=== PATIENT | male | born 1995 | race Caucasian/White ===

== ENCOUNTER 2021-01-13 12:22 | Emergency (ER) | payer OTHER, SELFPAY ==
[2021-01-13] VITALS (21 sets, daily range): BP systolic 113–130; BP diastolic 79–99; PULSE 72–88; RESP 13–20; O2SAT 96–99
--- NOTE | ~2021-01-13 | CT_ITS ---
EXAMINATION: CT BRAIN W/O DATE: 01/13/2021 13:36 INDICATION: Syncope. Loss of consciousness. TECHNIQUE: Computed tomography (CT) of the head was performed without intravenous contrast. The dose- length product was 605.33 mGy-cm. Automated exposure control and iterative reconstruction technique w ere employed. COMPARISON: No prior studies for comparison. FINDINGS: Normal brain parenchymal volume for age. Normal mcqueen-white differentiation. No acute intrac ranial hemorrhage, infarction, mass or mass effect. No ventriculomegaly or midline shift. Midline sagittal images demonstrate a normal corpus callosum, c raniovertebral junction and sella turcica. Basilar cisterns are patent. Paranasal sinuses and mastoids are pneumatized. No depressed skull fractures. IMPRESSION: 1. No acute intracranial abnormality. Reviewed, dictated and finalized at location B.
--- NOTE | 2021-01-13 13:26 | ECG_ITS ---
Measurements Intervals [place] Rate: 77 P: 42 ND: 156 QRS: 39 QRSD: 103 T: 22 QT: 341 QTc: 386 Interpretive Statements SINUS RHYTHM INCOMPLETE RIGHT BUNDLE BRANCH BLOCK DELAYED PRECORDIAL R/S TRANSITION BASELINE ARTIFACT- I, III, AVR, AVL, AVF, V2 BORDERLINE ECG Electronically Signed On 01-13-2021 14:22:45 CDT by Marco Rider D.O.
[2021-01-13] MEDS: TETANUS,DIPHTHERIA,AC PERTUSSIS ADULT (0.5 ML) BOOSTRIX IM (13:40)
[2021-01-13 13:50] LABS: Basophils Percent Auto 0.7 % (0.2-1.2); Eosinophils Absolute Auto 0.1 K/mm3 (0-0.3); Eosinophils Percent Auto 2.5 % (0-4.4); Hematocrit 44.4 % (42.0-52.0); Hemoglobin 15.2 g/dL (14.0-18.0); Immature Granulocyte Absolute 0.03 K/mm3 (0.00-0.031); Immature Granulocyte Percent A 0.5 % (0-0.5); Lymphocytes Absolute Auto 1.66 K/mm3 (0.9-3.2); Lymphocytes Percent Auto 30.1 % (18.3-44.2); Mean Corpuscular HGB Conc 34.2 g/dl (32-36); Mean Corpuscular Hemoglobin 29.9 pg (26-34); Mean Corpuscular Volume 87.4 fl (80-100); Mean Platelet Volume 10.8 fl (7.4-10.4); Monocytes Absolute Auto 0.4 K/mm3 (0.1-0.6); Monocytes Percent Auto 6.5 % (2.6-8.5); Neutrophils Absolute Auto 3.3 K/mm3 (1.3-6.7); Neutrophils Percent Auto 59.7 % (45.5-73.1); Platelet Count Result 220 k/mm3 (150-375); Red Blood Count 5.08 M/mm3 (4.6-6.20); Red Cell Distribution Width 12.3 % (11.5-14.5); White Blood Count 5.5 K/mm3 (4.5-10.0)
[2021-01-13 13:55] LABS: Ethanol < 10 mg/dL (<10)
[2021-01-13 13:56] LABS: Alanine Aminotransferase 21 U/L (4-50); Albumin Level 4.6 g/dL (3.5-5.1); Alkaline Phosphatase 79 U/L (38-126); Anion Gap 5 mmol/L (8-16); Aspartate Amino Transferase 31 U/L (17-59); Bilirubin,Total 0.8 mg/dL (0.2-1.3); Blood Urea Nitrogen 18 mg/dL (9-20); Calcium 9.7 mg/dL (8.4-10.2); Carbon Dioxide 31 mmol/L (22-30); Chloride 105 mmol/L (98-107); Estimated CRCL calculation 105 ml/min; Estimated Glomerular Filt Rate > 60; Glucose 98 mg/dL (75-110); Potassium 3.7 mmol/L (3.4-5.0); Sodium 141 mmol/L (137-145)
--- NOTE | 2021-01-13 14:00 | ED.SEIZURE ---
HPI - Seizure General Chief Complaint: Seizure Stated Complaint: syncopal episode, head lac Time Seen by Provider: 01/13/21 12:34 Source: patient and family Mode of arrival: EMS Limitations: no limitations History of Present Illness HPI Narrative: 25-year-old male Here for evaluation of likely seizure Reports there was a history of seizures in childhood until approximately age 7 but none for many years He was working at [employer] today and having a snack break when there was a episode of falling onto the ground, altered level of consciousness, generalized shaking, and urinary incontinence which certainly sounds seizure-like As it resolved coworkers tried to stand him up and move him but he was reportedly too weak and shaky to do that and was placed back on the ground until EMS arrived He did not report feeling sick or having any symptoms at all prior to this episode He did strike his forehead and has a small laceration over his right eyebrow and now complains of a headache as well as some soreness in his jaw, but did not bite his tongue and did not loosen any teeth, and does not have any other injuries Related Data Allergies Allergy/AdvReac Type Severity Reaction Status Date / Time No Known Allergies Allergy Unverified 11/14/13 10:37 Review of Systems Review of Systems: All systems reviewed & are unremarkable except as noted in HPI and below Constitutional: Constitutional: Reports no additional constitutional complaints, Denies chills, Denies fever(s) and Denies headache(s) Eyes: Eyes: Reports no additional eye complaints and Denies change in vision ENT: Denies headache(s) and Denies sore throat Comments: No injuries Cardiovascular: Cardiovascular: Denies chest pain and Denies dyspnea Respiratory: Respiratory: Denies cough and Denies dyspnea Gastrointestinal: Gastrointestinal: Denies abdominal pain, Denies nausea and Denies vomiting Genitourinary: Genitourinary: Reports urinary incontinence Musculoskeletal: Musculoskeletal: Reports myalgias, Denies deformity, Denies arthralgias, Denies joint swelling and Denies numbness Integumentary/Breasts: Skin/Breast: Denies wounds Neurologic: Reports confusion, Reports headache(s), Denies focal weakness and Denies numbness Comments: Seizure versus syncope Psychiatric: Psychiatric: Reports no additional psychiatric complaints Endocrine: Endocrine: Reports no additional endocrine complaints Hematologic/Lymphatic: Hematologic/Lymphatic: Reports no additional hematologic/lymphatic complaints Allergic/Immunologic: Allergic/Immunologic: Reports no additional allergic/immunologic complaints [facility] Family History Family History (Updated 05/15/14 @ 07:13 by DOCTOR UNKNOWN) Mother Hypertension Social History Social History Smoking status: Never smoker Second hand tobacco smoke exposure: No Alcohol intake: never Gender identity (if verbalized by the patient): Male Exam Const: General: cooperative, no acute distress and alert Orientation/consciousness: patient oriented x3 (alert) HENMT: Head: normal to inspection, normocephalic, atraumatic, contusion and laceration (2 cm to the lateral part of the right eyebrow) Ears: external ears normal General nose exam: no epistaxis Eyes: Conjunctivae: conjunctivae normal Pupils: Equal, round and reactive pupils present EOM: EOMs intact bilaterally Neck: Neck: normal visual inspection, no meningeal signs, supple and no JVD Other: No tenderness Resp: Effort & Inspection: normal respiratory effort and not labored Auscultation: no rales, no rhonchi, no wheezes and other (BS =) Cardio: Rate: regular rate Rhythm: regular rhythm Heart sounds: no murmurs GI: GI Palp: Yes Soft to palpation and No Tenderness to palpation present (GI) Back/Spine/Pelvis: Other: No back tenderness Skin: General skin exam: normal color and no rashes or lesions noted Neuro: General: patient oriented x3 (alert), moves all extremities,
[2021-01-13 14:37] LABS: Amphetamine Screen Urine Negative (Negative); Barbiturate Screen Urine Negative (Negative); Benzodiazepines Screen Urine Negative (Negative); Cannabinoid Screen Urine Negative (Negative); Cocaine Screen Urine Negative (Negative); Methadone Screen Urine Negative (Negative); Opiate Screen Urine Negative (Negative); Phencyclidine Screen Urine Negative (Negative)
[2021-01-13] MEDS: levETIRAcetam 500 MG TABLET PO (15:43)
== END 2021-01-13 15:50 | disposition home or self-care (01) ==
PROVIDERS: Emergency Provider Emergency Medicine
DX: R56.9 Unspecified convulsions (principal); S01.111A Laceration without foreign body of right eyelid and periocular area, initial encounter; Z23 Encounter for immunization; W18.39XA Other fall on same level, initial encounter
CPT/HCPCS: 12011; 36415; 70450; 80053; 80307; 85025; 90471; 90715; 93005; 99284; A9270

== ENCOUNTER 2021-01-22 06:42 | Outpatient (CLI) | payer OTHER, SELFPAY ==
--- NOTE | 2021-01-23 11:30 | P.NEURO_ITS ---
Neurology EEG Report TEST EEG DIAGNOSIS seizures CONDITION OF RECORDING awake drowsy and sleep CLINICAL HISTORY patient reported he had a seizure last week. He had a seizure when he was younger but has not had for long time and also has not been on any medication for several years EEG DESCRIPTION basic resting occipital frequency consists of large amount of well-organized 11 to 13 hertz per 2nd alpha admixed with minimal amount of low-voltage 15 to 18 hertz per 2nd beta. During drowsiness low-voltage beta activity is seen diffus stuart admixed with waxing and waning posterior alpha rhythm. Bilateral symmetrical sleep activity seen during sleep. Hyperventilation not done. Photic stimulation produced normal drive. Non paroxysmal. Nonfocal. Nonlateralizing. IMPRESSION Normal record
== END 2021-01-22 06:43 | disposition home or self-care (01) ==
PROVIDERS: PCP Family Medicine; Visit Provider Psychiatry & Neurology Neurology
DX: R56.9 Unspecified convulsions (principal)
CPT/HCPCS: 95816

== ENCOUNTER 2022-11-12 19:08 | Emergency (ER) | payer BC, SELFPAY ==
[2022-11-12 19:38] VITALS: BP 132/81; PULSE 78; RESP 16; TEMP 36.6; O2SAT 98
--- NOTE | 2022-11-12 20:08 | ED.GENADULT ---
HPI - General Adult General Chief complaint: Skin/Abscess/Foreign Body Stated complaint: End of Pen to stuck in L ear Time Seen by Provider: 11/12/22 19:57 History of Present Illness HPI narrative: 27-year-old male presenting to the emergency department for evaluation after having the metallic and of a writing pen stuck in his ear. Patient attempted to get it out and ended up using a Q-tip and pushed it in further. Related Data Allergies Allergy/AdvReac Type Severity Reaction Status Date / Time No Known Allergies Allergy Verified 11/12/22 19:09 Review of Systems Review of Systems: Foreign body in left ear All systems reviewed & are unremarkable except as noted in HPI and below PMFSH Family History Family History (Updated 05/15/14 @ 07:13 by DOCTOR UNKNOWN) Mother Hypertension Social History Social History Smoking status: Never smoker Second hand tobacco smoke exposure: No Alcohol intake: never Gender identity (if verbalized by the patient): Male Exam Narrative: APPEARANCE: Well appearing, no pain, no distress, well-nourished. HEAD: normocephalic, atraumatic. EYES: PERRLA/EOMI, conjunctivae clear. NOSE: Normal no drainage EARS: Metallic foreign body in left ear THROAT: Pharynx clear, no exudate. NECK: Supple. No adenopathy, no masses. RESPIRATORY: Airway patent, respirations nonlabored. Clear to auscultation bilaterally, no rales, rhonchi, wheezing. NEURO: Alert. Cranial nerves II through XII intact. Grossly intact SKIN: Warm, dry. Normal Color Course Course Emergency Course: 27-year-old male with a foreign body in his left ear. Alligator forceps were used to remove the foreign body. TM was visualized after the removal of the foreign body and ear was well-appearing. Patient reports all symptoms are resolved after removal of the foreign body Vital Signs Vital signs: Vital Signs Temperature 97.8 F 11/12/22 19:38 Pulse Rate 78 11/12/22 19:38 Respiratory Rate 16 11/12/22 19:38 Blood Pressure 132/81 11/12/22 19:38 Pulse Oximetry 98 11/12/22 19:38 Oxygen Delivery Room Air 11/12/22 19:38 Temperature 98 F 11/12/22 20:18 Pulse Rate 80 11/12/22 20:18 Respiratory Rate 18 11/12/22 20:18 Blood Pressure 128/79 11/12/22 20:18 Pulse Oximetry 99 11/12/22 20:18 Oxygen Delivery Room Air 11/12/22 19:38 Procedures Foreign Body Removal Foreign Body #1: Time Out Performed: yes Site: left and ear Description of foreign body: other (Metallic end of a writing pen) Sedation/Analgesia: none Technique: manual removal and removal with forceps Confirmed by:: direct visualization Complications: none Post-procedure exam: awake, alert Neurovascular: no change from pre-procedure FB Removal Ear Foreign Body #1: Location: ear canal (L) Foreign Body Suspected: other (Metallic foreign body) TM intact pre-procedure: unable to visualize Foreign Body Removed: yes Foreign Body Removal Technique: forceps Tympanic Membrane Intact Post Procedure: Yes Patient Tolerated Procedure: well and no complications Complications: none Medical Decision Making Vital Signs Vital Signs: Vital Signs Temperature 97.8 F 11/12/22 19:38 Pulse Rate 78 11/12/22 19:38 Respiratory Rate 16 11/12/22 19:38 Blood Pressure 132/81 11/12/22 19:38 Pulse Oximetry 98 11/12/22 19:38 Oxygen Delivery Room Air 11/12/22 19:38 Temperature 98 F 11/12/22 20:18 Pulse Rate 80 11/12/22 20:18 Respiratory Rate 18 11/12/22 20:18 Blood Pressure 128/79 11/12/22 20:18 Pulse Oximetry 99 11/12/22 20:18 Oxygen Delivery Room Air 11/12/22 19:38 Discharge Plan Discharge Clinical Impression: Foreign body in ear Qualifiers: Encounter type: initial encounter Laterality: left Qualified Code(s): T16.2XXA - Foreign body in left ear, initial encounter Patient Disposition: H
[2022-11-12 20:18] VITALS: BP 128/79; PULSE 80; RESP 18; TEMP 36.6; O2SAT 99
== END 2022-11-12 20:18 | disposition home or self-care (01) ==
PROVIDERS: Emergency Provider Emergency Medicine; PCP Family Medicine
DX: T16.2XXA Foreign body in left ear, initial encounter (principal)
CPT/HCPCS: 69200; 99282

== ENCOUNTER 2025-03-27 13:34 | Emergency (ER) | payer BC, SELFPAY ==
[2025-03-27 13:46] VITALS: BP 128/89; PULSE 86; RESP 20; TEMP 36.7; O2SAT 20
--- NOTE | 2025-03-27 13:56 | ED.SKABFB ---
HPI - Skin/Abscess/Foreign Bdy General Chief complaint: Extremity Problem,Nontraumatic Stated complaint: Right Hand Middle Finger Pain Time Seen by Provider: 03/27/25 13:53 Source: patient and family Mode of arrival: ambulatory Limitations: no limitations History of Present Illness HPI narrative: 29-year-old male presents with paronychia to right middle finger. Has had redness, swelling and tenderness for the past 2-3 days. His mom attempted to pop last night, was painful. All systems reviewed and negative except as noted above. Related Data Allergies Allergy/AdvReac Type Severity Reaction Status Date / Time No Known Allergies Allergy Verified 03/27/25 13:36 Review of Systems Review of Systems: CONSTITUTIONAL: Denies fever, chills, or sweats. EYES: Denies visual changes, redness, or discharge. ENT: Denies rhinorrhea, congestion, sore throat, or otalgia. CARDIOVASCULAR: Denies chest pain, palpitations, or edema. RESPIRATORY: Denies cough or dyspnea. GASTROINTESTINAL: Denies abdominal pain, nausea, vomiting, or diarrhea. GENITOURINARY: Denies dysuria or hematuria. SKIN: Reports paronychia to right middle finger MUSCULOSKELETAL: Denies back pain, joint pain, or myalgia. NEUROLOGIC: Denies headache, numbness, or weakness. PSYCHIATRIC: Denies anxiety or depression. All other systems reviewed are negative, except as documented in HPI. [facility] Family History Family History (Updated 05/15/14 @ 07:13 by DOCTOR UNKNOWN) Mother Hypertension Social History Social History Smoking status: Never smoker Second hand tobacco smoke exposure: No Alcohol intake: never Gender identity (if verbalized by the patient): Male Comments At time of signature, agree with nursing past medical, surgical, social and family history. There is no relevant family history pertinent to the presenting complaint. Exam Narrative: GENERAL: This is a well-nourished, well-developed patient, in no apparent distress. HEAD: normocephalic, atraumatic. EYES: PERRL. Sclera clear/white. Vision is grossly intact. EARS: External ears normal NOSE: External nose normal NECK: Neck supple, non-tender without lymphadenopathy, masses or thyromegaly. CARDIOVASCULAR: Regular rate and rhythm without murmurs, gallops, or rubs. RESPIRATORY: Clear to auscultation. Breath sounds equal bilaterally. No wheezes, rales, or rhonchi. SKIN: warm, Dry, intact with no suspicious lesions or rash, good texture and turgor. erythema, swelling, tenderness, fluctuance R middle finger, medial aspect NEURO: awake, alert, and oriented to person, place and time. There were no obvious focal neurologic abnormalities. EXTREMITIES: No joint tenderness, effusion, or edema noted. Course Course Level of Care: Express Care Visit Vital Signs Vital signs: Vital Signs Temperature 36.7 C 03/27/25 13:46 Pulse Rate 86 03/27/25 13:46 Respiratory Rate 20 03/27/25 13:46 Blood Pressure 128/89 03/27/25 13:46 Pulse Oximetry 20 L 03/27/25 13:46 Oxygen Delivery Room Air 03/27/25 13:46 Temperature 36.7 C 03/27/25 13:46 Pulse Rate 86 03/27/25 13:46 Respiratory Rate 20 03/27/25 13:46 Blood Pressure 128/89 03/27/25 13:46 Pulse Oximetry 20 L 03/27/25 13:46 Oxygen Delivery Room Air 03/27/25 13:46 reviewed Procedures Abscess I/D hand: Date of Incision: 03/27/25 Time of Incision: 14:00 Side (if applicable): right (middle finger paronychia) Sedation/analgesia: none Local Anesthetic: none Technique: incised with #11 blade Irrigation: No Packing used?: none I&D Results: Pus and Blood MDM - Skin/Abscess/Foreign Bdy MDM Narrative Medical decision making narrative: paronychia to right middle finger open and drained. Wound culture ordered. Will prescribe Augmentin. Patient well-appearing. Differential Diagnosis Differential diagnosis: Likely abscess of skin or subcutaneous tissue, cellulitis and other ( Paronychia) Discharge Plan Discharge Clinical Impression: Paronychia of right middle finger Patient Disposition: Home Condition: Stable Instructions: Antibiotic Form, Paronychia (ED) Additional Instructions: Take antibiotic as prescribed until gone. Take tylenol or ibuprofen every 6 to 8 hours as needed for pain. See your doctor as needed. Patient Language: Sammarinese Prescriptions: New amoxicillin-pot clavulanate 875-125 mg tablet 1 tablet PO Q12H 7 Days Qty: 14 0RF Follow-up/Referrals: Alban De La Rosa MD [Primary Care Provider] - Time of Disposition: 14:04
== END 2025-03-27 14:10 | disposition home or self-care (01) ==
PROVIDERS: Emergency Provider Nurse Practitioner Family; PCP Family Medicine
DX: L03.011 Cellulitis of right finger (principal)
CPT/HCPCS: 10060; 99213; G0463

== ENCOUNTER 2025-09-10 12:08 | Emergency (ER) | payer BC, SELFPAY ==
--- NOTE | ~2025-09-10 | CT_ITS ---
EXAMINATION: CT BRAIN W/O DATE: 09/10/2025 15:46 INDICATION: Head trauma. TECHNIQUE: Computed tomography (CT) of the head was performed without intravenous contrast. The dose-length product was 605.33 mGy-cm. Automated exposure control and iterative reconstruction technique were employed. COMPARISON: CT dated 01/13/2021 FINDINGS: Normal brain parenchymal volume for age. Normal mcqueen-white differentiation. No acute intracranial hemorrhage, infarction, mass or mass effect. No ventriculomegaly or midline shift. Midline sagittal images demonstrate a normal corpus callosum, craniovertebral junction and sella turcica. Basilar cisterns are patent. Paranasal sinuses and mastoids are pneumatized. No depressed skull fractures. IMPRESSION: 1. No acute intracranial abnormality. Reviewed, dictated and finalized at location O. [employer]
--- NOTE | ~2025-09-10 | XR_ITS ---
EXAMINATION: XR chest 2V 09/10/2025 14:00 INDICATION: Syncope PROCEDURE: AP and lateral views of the chest COMPARISON: 01/15/2007 FINDINGS: The lungs are clear. Shallow inspiration. The cardiomediastinal silhouette is within normal limits. There are no pleural effusions. There is no pneumothorax suspected. IMPRESSION: 1: NO ACUTE CARDIOPULMONARY DISEASE. Reviewed, dictated and finalized at location O. TESTER
[2025-09-10 12:27] VITALS: BP 132/83; PULSE 117; RESP 18; TEMP 37.9; O2SAT 96
--- NOTE | 2025-09-10 12:50 | ECG_ITS ---
Test Date: 2025-09-10 12:56:39 Measurements Intervals [place] Rate: 114 P: 46 VT: 144 QRS: 52 QRSD: 102 T: 30 QT: 313 QTc: 431 Interpretive Statements SINUS TACHYCARDIA POSSIBLE LEFT ATRIAL ENLARGEMENT INCOMPLETE RIGHT BUNDLE BRANCH BLOCK DELAYED PRECORDIAL R/S TRANSITION ABNORMAL ECG No previous ECG available for comparison Electronically Signed On 09-10-2025 18:53:41 [employer] by Marco Rider D.O.
[2025-09-10 12:52] VITALS: BP 147/98; PULSE 114; RESP 20; O2SAT 100
--- NOTE | 2025-09-10 12:52 | PC.NURSE ---
Pt had witnessed syncopal episode while in [place]. Pt started to cry out stating its happening, and then jolted and went limp. Mother was sternal rubbing pt, pt was nonresponsive for less than 5 seconds. Blood sugar was obtained, vital were obtained. ED charge was made aware. Pt started to become pale, diaphoretic, and then vomited yellow/green mucus like color and consistency into emesis bag. Pt taken to ED 11.
[2025-09-10 13:14] LABS: Hematocrit 44.0 % (42.0-52.0); Hemoglobin 15.4 g/dL (14.0-18.0); Immature Granulocyte Percent A 0.4 % (0-0.5); Lymphocytes Absolute Auto 0.43 K/mm3 (0.9-3.2); Mean Corpuscular HGB Conc 35.0 g/dl (32-36); Mean Corpuscular Hemoglobin 30.0 pg (26-34); Mean Corpuscular Volume 85.8 fl (80-100); Nucleated Red Blood Cells Absolute Auto 0.000 K/mm3 (0.0-0.012); Nucleated Red Blood Cells Perc 0.0 % (0.0-0.2); Platelet Count Result 173 k/mm3 (150-375); Red Blood Count 5.13 M/mm3 (4.6-6.20); White Blood Count 5.5 K/mm3 (4.5-10.0)
[2025-09-10 13:32] LABS: Alanine Aminotransferase 27 U/L (6-50); Albumin Level 4.6 g/dL (3.5-5.1); Alkaline Phosphatase 94 U/L (38-126); Anion Gap 12 mmol/L (4-12); Aspartate Amino Transferase 31 U/L (17-59); Bilirubin,Total 1.3 mg/dL (0.2-1.3); Blood Urea Nitrogen 11 mg/dL (9-20); Calcium 9.1 mg/dL (8.4-10.2); Carbon Dioxide 23 mmol/L (22-30); Chloride 102 mmol/L (98-107); Estimated CRCL calculation 93 ml/min; Estimated Glomerular Filt Rate > 60; Glucose 132 mg/dL (65-110); Potassium 3.4 mmol/L (3.4-5.0); Sodium 137 mmol/L (137-145); Total Protein 8.0 g/dL (6.3-8.2)
[2025-09-10 13:51] LABS: Influenza A QL RT-PCR Positive (Negative); Influenza B QL RT-PCR Negative (Negative); RSV RNA, RT-PCR Negative (Negative); SARS-CoV-2 RNA PCR Negative (Negative)
--- NOTE | 2025-09-10 15:16 | ED_ITS ---
HPI - General Adult General Chief complaint: Syncope Stated complaint: exposed to flu, syncopal episode at urgent care Time Seen by Provider: 09/10/25 13:28 History of Present Illness HPI narrative: 30-year-old male presented to hold a urgent care for evaluation due to suspected he had influenza and patient had a syncopal episode. Patient's family did test positive for influenza. During the syncopal episode he did strike his face and does have a superficial abrasion to the left side of his nose. Upon arrival emergency department patient is well-appearing. Related Data Allergies Allergy/AdvReac Type Severity Reaction Status Date / Time No Known Allergies Allergy Verified 09/10/25 12:31 Review of Systems 2 Review of Systems: All systems reviewed & are unremarkable except as noted in HPI and below PMFSH Family History Family History (Updated 05/15/14 @ 07:13 by DOCTOR UNKNOWN) Mother Hypertension Social History Social History Smoking status: Never smoker Second hand tobacco smoke exposure: No Alcohol intake: never Gender identity (if verbalized by the patient): Male Exam 2 Narrative: APPEARANCE: Well appearing, no pain, no distress, well-nourished. HEAD: normocephalic, atraumatic. EYES: PERRLA/EOMI, conjunctivae clear. NOSE: Normal no drainage EARS:TMS clear with good light reflex. THROAT: Pharynx clear, no exudate. NECK: Supple. No adenopathy, no masses. RESPIRATORY: Airway patent, respirations nonlabored. Clear to auscultation bilaterally, no rales, rhonchi, wheezing. CARDIOVASCULAR: Regular rate and rhythm without murmurs rubs or gallops. ABDOMINAL: Soft, nontender, nondistended, normal bowel sounds MUSCULOSKELETAL: Moves all extremities. Strength/ROM intact, No edema, No calf tenderness. NEURO: Alert. Cranial nerves II through XII intact. Good gait. Good coordination SKIN: Superficial laceration to left side of nose Course Vital Signs Vital signs: Vital Signs Temperature 100.2 F H 09/10/25 12:27 Pulse Rate 117 H 09/10/25 12:27 Respiratory Rate 18 09/10/25 12:27 Blood Pressure 132/83 09/10/25 12:27 Pulse Oximetry 96 09/10/25 12:27 Oxygen Delivery Room Air 09/10/25 12:27 Temperature 100.3 F H 09/10/25 15:23 Pulse Rate 110 H 09/10/25 18:25 Respiratory Rate 16 09/10/25 18:25 Blood Pressure 136/88 09/10/25 18:25 Pulse Oximetry 98 09/10/25 18:25 Oxygen Delivery Room Air 09/10/25 12:27 [facility] Narrative Medical decision making narrative: 30-year-old male presenting to the emergency department for evaluation after having a syncopal episode. Patient was treated with IV fluids and did feel improved. Patient had negative head CT negative chest x-ray. Patient did test positive for influenza A. Patient was afebrile with no leukocytosis and a Stable hemoglobin of 15.4. Patient was negative for RSV and for COVID. Patient did feel improved with treatment. Patient was able to ambulate in the emergency department and was no longer orthostatic. Patient family updated the results of the workup they are comfortable With the plan for discharge home. Differential Diagnosis Differential Diagnosis: COVID, RSV, influenza, orthostatic hypotension, vasovagal, subdural hematoma, subarachnoid hemorrhage, pneumonia Lab Data [facility] Lab Attestation statement: I personally reviewed the patient's lab results. 09/10/25 13:06 09/10/25 13:06 Labs: Lab Results 09/10/25 09/10/25 Range/Units 12:42 13:06 WBC 5.5 (4.5-10.0) K/mm3 RBC 5.13 (4.6-6.20) M/mm3 Hgb 15.4 (14.0-18.0) g/dL Hct 44.0 (42.0-52.0) % MCV 85.8 (80-100) fl MCH 30.0 (26-34) pg MCHC 35.0 (32-36) g/dl RDW 12.6 (11.5-14.5) % Plt Count 173 (150-375) k/mm3 MPV 10.7 H (7.4-10.4) fl Immature Gran % (Auto) 0.4 (0-0.5) % Neut % (Auto) 77.4 H (45.5-73.1) % Lymph % (Auto) 7.8 L (18.3-44.2) % [place] % (Auto) 14.0 H (2.6-8.5) % Eos % (Auto) 0.0 (0-4.4) % Baso % (Auto) 0.4 (0.2-1.2) % Lymph # (Auto) 0.43 L (0.9-3.2) K/mm3 [place] # (Auto) 0.8 H (0.1-0.6) K/mm3 Eos # (Auto) 0.0 (0-0.3) K/mm3 Baso # (Auto) 0.0 (0.0-0.1) K/mm3 Abs Immat Gran (auto) 0.02 (0.00-0.031) K/mm3 Absolute Neuts (auto) 4.3 (1.3-6.7) K/mm3 Absolute Nucleated RBC 0.000 (0.0-0.012) K/mm3 Nucleated RBC % 0.0 (0.0-0.2) % Sodium 137 (137-145) mmol/L Potassium 3.4 (3.4-5.0) mmol/L Chloride 102 (98-107) mmol/L Carbon Dioxide 23 (22-30) mmol/L Anion Gap 12 (4-12) mmol/L BUN 11 D (9-20) mg/dL Creatinine 1.00 (0.7-1.3) mg/dL Estim Creat Clear Calc 93 ml/min Estimated GFR > 60 (59 - ) Glucose 132 H (65-110) mg/dL POC Capillary Glucose 157 H (65-105) mg/dl Calcium 9.1 (8.4-10.2) mg/dL Total Bilirubin 1.3 (0.2-1.3) mg/dL AST 31 (17-59) U/L ALT 27 (6-50) U/L Alkaline Phosphatase 94 (38-126) U/L Total Protein 8.0 (6.3-8.2) g/dL Albumin 4.6 (3.5-5.1) g/dL Influenza A (RT-PCR) Positive A (Negative) Influenza B (RT-PCR) Negative (Negative) RSV (RT-PCR) Negative (Negative) SARS-CoV-2 RNA (RT-PCR) Negative (Negative) Imaging Data Radiologist's impression: ITS Impressions Chest X-Ray 09/10/25 14:03 IMPRESSION: 1: NO ACUTE CARDIOPULMONARY DISEASE. Head CT 12/24/25 15:51 IMPRESSION: 1. No acute intracranial abnormality. Discharge Plan Discharge Clinical Impression: Vasovagal syncope, Flu, Facial laceration Patient Disposition: Home Condition: Stable Instructions: Antibiotic Form, Viral Syndrome (ED), Near Syncope (ED), Skin Adhesive Strips (ED) Additional Instructions: Drink plenty of fluids. Tylenol and ibuprofen for pain control. Wound care as directed. Have close follow-up with your primary care physician. Patient Language: Persian Prescriptions: No Action amoxicillin-pot clavulanate 875-125 mg tablet 1 tablet PO Q12H 7 Days Qty: 14 0RF Follow-up/Referrals: Alban De La Rosa MD [Primary Care Provider, Family Practice] Stand Alone Forms: Work/School Release IP
[2025-09-10] MEDS: LACTATED RINGERS 1,000 ML 999 ML IV CONT (15:21)
[2025-09-10 15:23] VITALS: BP 132/76; PULSE 111; RESP 20; TEMP 37.9; O2SAT 98
[2025-09-10] MEDS: ACETAMINOPHEN 500 MG TABLET 1000 MG PO (17:48)
[2025-09-10 18:25] VITALS: BP 136/88; PULSE 110; RESP 16; O2SAT 98
--- NOTE | 2025-09-10 18:31 | PC.NURSE ---
pt advised to keep his arm straight so his fluids will flow into his arm. pt agreeable
== END 2025-09-10 18:25 | disposition home or self-care (01) ==
PROVIDERS: Emergency Provider Emergency Medicine; PCP Family Medicine
DX: R55 Syncope and collapse (principal); J10.1 Influenza due to other identified influenza virus with other respiratory manifestations; S00.31XA Abrasion of nose, initial encounter; Z20.822 Contact with and (suspected) exposure to COVID-19
CPT/HCPCS: 36415; 70450; 71046; 80053; 82948; 85025; 87637; 93005; 96360; 99284; A9270; J7120